=== PATIENT | female | born 1990 | race African-American/Black ===

== ENCOUNTER 2016-09-27 14:57 | Emergency (ER) | payer SELFPAY ==
[~2016-09-27] VITALS: Ht 152.4 cm; Wt 54.0 kg
[2016-09-27 15:00] VITALS: Ht 152.4 cm; Wt 54.0 kg
[2016-09-27] MEDS ORDERED: ONDANSETRON 4 MG INJ IV STA (16:05)
[2016-09-27] MEDS ORDERED: SOD CHLORIDE 0.9% 1,000 ML IV STA (16:05)
[2016-09-27] MEDS ORDERED: ONDANSETRON (ODT) 4 MG TAB ODT STA (16:36)
[2016-09-27 16:40] LABS: BASOPHILS % 0.3 % (0.0-2.0); EOSINOPHILS % 0.3 % (0.0-7.0); HEMATOCRIT 37.1 % (37.0-47.0); HEMOGLOBIN 13.1 g/dl (12.0-16.0); LYMPHOCYTES # 1.6 10^3/ul (0.8-2.9); LYMPHOCYTES % 22.1 % (15.0-51.0); MEAN CORPUSCULAR HEMOGLOBIN 31.5 pg (29.0-33.0); MEAN CORPUSCULAR HGB CONC 35.3 g/dl (32.0-37.0); MEAN CORPUSCULAR VOLUME 89.2 fl (82.0-101.0); MEAN PLATELET VOLUME 10.6 fl (7.4-10.4); MONOCYTE # 0.4 10^3/ul (0.3-0.9); MONOCYTES % 5.1 % (0.0-11.0); NEUTROPHIL # 5.1 10^3/ul (1.6-7.5); NEUTROPHILS % 72.1 % (39.0-77.0); PLATELET COUNT 292 10^3/UL (140-415); RED BLOOD COUNT 4.16 10^6/ul (4.20-5.40); RED CELL DISTRIBUTION WIDTH 11.9 % (11.5-14.5); WHITE BLOOD COUNT 7.1 10^3/ul (4.8-10.8)
[2016-09-27 16:56] LABS: ADD UMIC YES; UR ASCORBIC ACID 40 mg/dL (NEGATIVE); UR BACTERIA FEW /HPF (NONE SEEN); UR BILIRUBIN (Dip) NEGATIVE (NEGATIVE); UR BLOOD (Dip) NEGATIVE (NEGATIVE); UR CLARITY SLIGHTLY CLOUDY (CLEAR); UR COLOR YELLOW (YELLOW); UR GLUCOSE (Dip) NEGATIVE (NEGATIVE); UR KETONES (Dip) 2+ mg/dL (NEGATIVE); UR LEUKOCYTE ESTERASE (Dip) TRACE Leu/ul (NEGATIVE); UR MUCUS MANY /HPF (NONE SEEN); UR NITRITE (Dip) NEGATIVE (NEGATIVE); UR RBC 2 /HPF (0-5); UR SPECIFIC GRAVITY (Dip) 1.029 (1.003-1.030); UR SQUAMOUS EPITHELIAL CELL MODERATE /HPF (FEW); UR TOTAL PROTEIN (Dip) 1+ mg/dl (NEGATIVE); UR UROBILINOGEN (Dip) 1+ mg/dL (NEGATIVE)
[2016-09-27 17:03] LABS: ALBUMIN 4.4 g/dl (3.3-4.9); ALBUMIN/GLOBULIN RATIO 1.22; BILIRUBIN,INDIRECT 0.8 mg/dl (0-1.1); BILIRUBIN,TOTAL 0.8 mg/dl (0.2-1.3); CALCIUM 9.8 mg/dl (8.4-10.2); CREATININE 0.63 mg/dl (0.44-1.00); POTASSIUM 4.3 mmol/L (3.5-5.1)
--- NOTE | 2016-09-27 17:05 | RADRPT ---
PROCEDURE: OB Ultrasound. CLINICAL INDICATION: Positive test. Pelvic pain. Vomiting. TECHNIQUE: Ultrasound of the pelvis was performed with transabdominal sonography in the axial and sagittal planes. COMPARISON: No prior study is available for comparison. FINDINGS: There is a single intrauterine gestational sac. pole and yolk sac are present. There is heart motion. heart rate is 173 beats per minute. [place]-rump length is 2.36 cm. Mean sac diameter is 3.80 cm. There is a mass in the uterus consistent with a fibroid measuring 2.0 x 2.0 x 1.5 cm. Menstrual age by ultrasound dates is 9 weeks 1 day. This indicates an expected date of delivery of 05/01/2017. The right ovary appears normal measuring 3.4 x 1.9 x 2.7 cm. The left ovary appears normal measuring 3.7 x 2.3 x 2.9 cm. Color Doppler and pulsed Doppler sonography demonstrate normal flow to the ovaries. There is no other pelvic mass or free fluid. IMPRESSION: 1. Single live intrauterine gestation of 9 weeks 1 day menstrual age by ultrasound dates. 2. Expected date of delivery is 05/01/2017. RPTAT: QQ .Huseyin Knutson MD, Date Time Electronically viewed and signed by .Huseyin Knutson MD, on 09/27/2016 17:04 .R/
[2016-09-27] MEDS ORDERED: DOXY1TAB3 PO (18:17)
--- NOTE | 2016-09-27 18:22 | ERD ---
ER Documentation Chief Complaint Date/Time DATE: 09/27/16 TIME: 18:19 Chief Complaint N/V x today 9 weeks HPI This is a 26-year-old female presents to the ER with nausea and vomiting that started today. Vomiting is nonbilious nonbloody. She denies any diarrhea. Patient is currently 9 weeks and has had a lot of vomiting throughout her . Patient denies any fevers or chills. She denies any pelvic pain , vaginal bleeding or vaginal discharge. A0. ROS 12 point review of systems was done, all negative except per HPI. Medications Home Meds Active Scripts Doxylamine/Pyridoxine Hcl (DICLEGIS DR 10-10 MG TABLET) 1 Each Tablet.dr, 2 TAB PO QHS, #30 TAB Prov:ERISМАРИНА 09/27/16 Allergies Allergies: Coded Allergies: No Known Allergy (Unverified , 09/27/16) PMhx/Soc History of Surgery: No Anesthesia Reaction: No Hx Neurological Disorder: No Hx Respiratory Disorders: No Hx Cardiac Disorders: No Hx Psychiatric Problems: No Hx Miscellaneous Medical Probl: No Hx Alcohol Use: Yes (OCCAS) Hx Substance Use: No Hx Tobacco Use: Yes Smoking Status: Current some day smoker Physical Exam Vitals Vital Signs Date Time Temp Pulse Resp B/P Pulse Ox O2 Delivery O2 Flow Rate FiO2 09/27/16 15:00 99.1 94 18 116/70 99 Physical Exam GENERAL: The patient is well-developed, well-nourished, in no acute distress. HEENT: Atraumatic. No signs of dehydration. RESPIRATORY: Clear to auscultation bilaterally. There are no rales, wheezes or rhonchi. There is no inspiratory stridor or retractions. No flaring/retractions. HEART: Regular rate and rhythm. No murmurs, clicks, rubs or gallops. ABDOMEN: Soft, nontender, nondistended. Active bowel sounds in all 4 quadrants. No rebounding or guarding. Negative McBur[place] point tenderness SKIN: There is no rash. The skin is warm and dry. Normal capillary refill. Result Diagram: 09/27/16 1625 09/27/16 1625 Results 24 hrs Laboratory Tests Test 09/27/16 16:25 White Blood Count 7.110^3/ul Red Blood Count 4.1610^6/ul Hemoglobin 13.1g/dl Hematocrit 37.1% Mean Corpuscular Volume 89.2fl Mean Corpuscular Hemoglobin 31.5pg Mean Corpuscular Hemoglobin Concent 35.3g/dl Red Cell Distribution Width 11.9% Platelet Count 19387^3/UL Mean Platelet Volume 10.6fl Neutrophils % 72.1% Lymphocytes % 22.1% Monocytes % 5.1% Eosinophils % 0.3% Basophils % 0.3% Nucleated Red Blood Cells % 0.0/100WBC Neutrophils # 5.110^3/ul Lymphocytes # 1.610^3/ul Monocytes # 0.410^3/ul Eosinophils # 0.010^3/ul Basophils # 0.010^3/ul Nucleated Red Blood Cells # 0.010^3/ul Urine Color YELLOW Urine Clarity SLIGHTLY CLOUDY Urine pH 6.0 Urine Specific [place] 1.029 Urine Ketones 2+mg/dL Urine Nitrite NEGATIVEmg/dL Urine Bilirubin NEGATIVEmg/dL Urine Urobilinogen 1+mg/dL Urine Leukocyte Esterase TRACELeu/ul Urine Microscopic RBC 2/HPF Urine Microscopic WBC 3/HPF Urine Squamous Epithelial Cells MODERATE/HPF Urine Bacteria FEW/HPF Urine Mucus MANY/HPF Urine Hemoglobin NEGATIVEmg/dL Urine Glucose NEGATIVEmg/dL Urine Total Protein 1+mg/dl Sodium Level 139mmol/L Potassium Level 4.3mmol/L Chloride Level 97mmol/L Carbon Dioxide Level 26mmol/L Anion Gap 20 Blood Urea Nitrogen 12mg/dl Creatinine 0.63mg/dl Glucose Level 79mg/dl Calcium Level 9.8mg/dl Total Bilirubin 0.8mg/dl Direct Bilirubin 0.00mg/dl Indirect Bilirubin 0.8mg/dl Aspartate Amino Transf (AST/SGOT) 23IU/L Alanine Aminotransferase (ALT/SGPT) 27IU/L Alkaline Phosphatase 49IU/L Total Protein 8.0g/dl Albumin 4.4g/dl Globulin 3.60g/dl Albumin/Globulin Ratio 1.22 Beta HCG, Quantitative 471869.0mIU/ml Current Medications Medications (Trade) Dose Ordered Sig/Cecil Route PRN Reason Start Time Stop Time Status Last Admin Dose Admin Sodium Chloride (NS) 1,000 ml @ 1,000 mls/hr Q1H STAT IV 09/27/16 16:05 09/27/16 17:04 DC 09/27/16 17:13 Ondansetron HCl (Zofran Inj) 4 mg ONCE STAT IV 09/27/16 16:05 09/27/16 16:07 DC 09/27/16 17:13 Ondansetron HCl (Zofran Odt) 4 mg ONCE STAT ODT 09/27/16 16:36 09/27/16 16:41 DC [place] [id number] Radiology Main Line: [phone] DIAGNOSTIC IMAGING REPORT Patient: ANTONIETA ESPINOZA : 1990 Age: 26 Sex: F MR #: [id number] DOS: 09/27/16 1605 Ordering MD: МАРИНА SCHULTE PA-C Location: [facility] Room/Bed: PROCEDURE: OB Ultrasound. CLINICAL INDICATION: Positive test. Pelvic pain. Vomiting. TECHNIQUE: Ultrasound of the pelvis was performed with transabdominal sonography in the axial and sagittal planes. COMPARISON: No prior study is available for comparison. FINDINGS: There is a single intrauterine gestational sac. pole and yolk sac are present. There is heart motion. heart rate is 173 beats per minute. [place]-rump length is 2.36 cm. Mean sac diameter is 3.80 cm. There is a mass in the uterus consistent with a fibroid measuring 2.0 x 2.0 x 1.5 cm. Menstrual age by ultrasound dates is 9 weeks 1 day. This indicates an expected date of delivery of 05/01/2017. The right ovary appears normal measuring 3.4 x 1.9 x 2.7 cm. The left ovary appears normal measuring 3.7 x 2.3 x 2.9 cm. Color Doppler and pulsed Doppler sonography demonstrate normal flow to the ovaries. There is no other pelvic mass or free fluid. IMPRESSION: 1. Single live intrauterine gestation of 9 weeks 1 day menstrual age by ultrasound dates. 2. Expected date of delivery is 05/01/2017. RPTAT: QQ .Huseyin Knutson MD, Date Time Electronically viewed and signed by .Huseyin Knutson MD, MD on 09/27/2016 17:04 .R/ CC: МАРИНА SCHULTE Procedures/[facility] This is a 26-year-old female presents to the ER with nausea and vomiting at this time patient's vomiting was controlled in the ER she does not have any electrolyte abnormality and is hemodynamically stable. Patient is afebrile and well-appearing. There is no evidence of abnormality on ultrasound. Patient will be sent home with Dicdinhs, as patient refused Zofran. Patient is to follow-up with her primary care doctor within 1-2 days or return to ER sooner if symptoms worsen. My medical decision making was shared with the patient she understands and agrees with plan. Departure Diagnosis: Primary Impression: Nausea and vomiting Condition: Stable Patient Instructions: Nausea and Vomiting-Adult Additional Instructions: Call your primary care doctor TOMORROW for an appointment during the next 1-2 days.See the doctor sooner or return here if your condition worsens before your appointment time. МРАИНА SCHULTE Sep 27, 2016 18:22
[2016-09-27 18:57] VITALS: BP 120/85; PULSE 68; RESP 20; TEMP 98.2
== END 2016-09-27 18:58 | disposition home or self-care (01) ==
LOC: FTE 14:57
DX: O21.9 Vomiting of pregnancy, unspecified (principal); R10.2 Pelvic and perineal pain; F17.210 Nicotine dependence, cigarettes, uncomplicated; O99.331 Smoking (tobacco) complicating pregnancy, first trimester; Z3A.09 9 weeks gestation of pregnancy
CPT/HCPCS: 36415; 76801; 80053; 81001; 84702; 85025; 86900; 86901; 96374; 99285; J2405; J7030

== ENCOUNTER 2017-04-01 20:05 | Outpatient (CLI) | END 2017-04-02 01:07 | disposition home or self-care (01) ==

== ENCOUNTER 2017-04-15 01:21 | Outpatient (CLI) | END 2017-04-15 02:20 | disposition home or self-care (01) ==